=== PATIENT | female | born 1955 | race Two or more races ===

== ENCOUNTER 2018-04-23 14:51 | Emergency (ER) | payer MEDICAID ==
[~2018-04-23] VITALS: Ht 152.4 cm; Wt 52.3 kg
[2018-04-23 14:55] VITALS: BP 125/72
[2018-04-23 15:26] LABS: BASOPHILS # (AUTO) 0.05 x10^3/uL (0-0.1); BASOPHILS % (AUTO) 1 % (0-1); EOSINOPHILS # (AUTO) 0.13 x10^3/uL (0-0.4); EOSINOPHILS % (AUTO) 1 % (1-7); LYMPHOCYTES # (AUTO) 2.99 x10^3/uL (1-3.4); LYMPHOCYTES % (AUTO) 30 % (22-44); MD NO; MEAN CORPUSCULAR HEMOGLOBIN 26.7 pg (27.0-34.8); MEAN CORPUSCULAR HGB CONC 32.5 g/dL (32.4-35.8); MEAN CORPUSCULAR VOLUME 82.3 fL (80-100); MEAN PLATELET VOLUME 8.2 fL (7.4-10.4); MONOCYTES # (AUTO) 0.72 x10^3/uL (0.2-0.8); MONOCYTES % (AUTO) 7 % (2-9); NEUTROPHILS # (AUTO) 6.08 x10^3/uL (1.8-6.8); NEUTROPHILS % (AUTO) 61 % (42-75); PLATELET COUNT 346 x10^3/uL (130-400); RED BLOOD COUNT 5.92 x10^6/uL (3.82-5.3); RED CELL DISTRIBUTION WIDTH 14.2 % (9.6-15.2)
[2018-04-23] MEDS ORDERED: OXYcodone/APAP 5/325MG TABLET PO ONE (15:30)
[2018-04-23 15:37] LABS: ALANINE AMINOTRANSFERASE 14 U/L (12-78); ALBUMIN 3.4 g/dL (3.4-5.0); ANION GAP 7 mmol/L (5-15); CHLORIDE 102 mmol/L (98-107); CREATININE 0.64 mg/dL (0.55-1.02)
[2018-04-23 15:39] LABS: ALKALINE PHOSPHATASE 89 U/L (45-117); BILIRUBIN,TOTAL 0.4 mg/dL (0.2-1.0); TOTAL PROTEIN 8.5 g/dL (6.4-8.2)
[2018-04-23 16:06] LABS: MICROSCOPIC INDICATED
[2018-04-23 16:41] LABS: CULTURE INDICATED? NO
== END 2018-04-23 16:47 | disposition home or self-care (01) ==
LOC: ED 16:05
DX: R10.9 Unspecified abdominal pain (principal); N28.89 Other specified disorders of kidney and ureter
CPT/HCPCS: 36415; 80053; 81001; 85025; 99284

== ENCOUNTER 2018-07-16 09:03 | Day surgery (SDC) | payer MEDICAID ==
[2018-07-16] MEDS ORDERED: SODIUM CHLORIDE 0.9% 1,000 ML IV SCH (10:00)
[2018-07-16] MEDS ORDERED: LIDOCAINE-MPF 1%, 5ML ONE (10:43)
== END 2018-07-16 17:00 | disposition home or self-care (01) ==
LOC: OUT 09:03 → RAD 17:00
PROVIDERS: ATTEND Internal Medicine
DX: E04.1 Nontoxic single thyroid nodule (principal); Z85.528 Personal history of other malignant neoplasm of kidney
CPT/HCPCS: 10022; 76942; 88172; 88173

== ENCOUNTER 2018-07-22 15:56 | Emergency (ER) | payer MEDICAID ==
[~2018-07-22] VITALS: Ht 144.8 cm; Wt 54.4 kg
[2018-07-22 16:11] VITALS: BP 121/63
[2018-07-22] MEDS ORDERED: HYDROcodone/APAP 5/325 TABLET PO PRN (17:00)
[2018-07-22] MEDS ORDERED: HYDROcodone/APAP 5/325 TABLET ONE (17:04)
== END 2018-07-22 17:22 | disposition home or self-care (01) ==
LOC: ED 17:16
DX: M25.531 Pain in right wrist (principal); M79.631 Pain in right forearm; M79.621 Pain in right upper arm; R20.2 Paresthesia of skin
CPT/HCPCS: 99284

== ENCOUNTER → 2018-08-06 | Outpatient (CLI) | payer MEDICAID ==
[2018-07-16 09:36] VITALS: BP 117/78
[~2018-08-06] VITALS: Ht 149.9 cm; Wt 52.9 kg
[~2018-08-06] MED LIST: SODIUM CHLORIDE 0.9% 1,000 ML IV SCH
== END | disposition home or self-care (01) ==
LOC: PETCFH 08:18
PROVIDERS: ATTEND Student in an Organized Health Care Education/Training Program
DX: C64.1 Malignant neoplasm of right kidney, except renal pelvis (principal)
CPT/HCPCS: 78306; A9503

== ENCOUNTER → 2018-08-13 | Outpatient (CLI) | payer MEDICAID ==
[~2018-08-13] MED LIST changes: +OMNIPAQUE 350 MG/ML, 100ML BOTTLE ONE; -SODIUM CHLORIDE 0.9% 1,000 ML IV SCH
== END | disposition home or self-care (01) ==
LOC: CFH 14:44
PROVIDERS: ATTEND Student in an Organized Health Care Education/Training Program
DX: R59.9 Enlarged lymph nodes, unspecified (principal); E04.9 Nontoxic goiter, unspecified; E07.9 Disorder of thyroid, unspecified
CPT/HCPCS: 71260; 74177; 82565; Q9967

== ENCOUNTER 2018-09-28 11:04 | Emergency (ER) | payer MEDICAID ==
[~2018-09-28] VITALS: Ht 147.3 cm; Wt 59.2 kg
[2018-09-28 12:01] LABS: BASOPHILS # (AUTO) 0.04 x10^3/uL (0-0.1); BASOPHILS % (AUTO) 1 % (0-1); EOSINOPHILS # (AUTO) 0.14 x10^3/uL (0-0.4); EOSINOPHILS % (AUTO) 2 % (1-7); LYMPHOCYTES # (AUTO) 2.03 x10^3/uL (1-3.4); LYMPHOCYTES % (AUTO) 28 % (22-44); MD NO; MEAN CORPUSCULAR HEMOGLOBIN 28.5 pg (27.0-34.8); MEAN CORPUSCULAR HGB CONC 33.2 g/dL (32.4-35.8); MEAN CORPUSCULAR VOLUME 85.9 fL (80-100); MEAN PLATELET VOLUME 9.1 fL (7.4-10.4); MONOCYTES # (AUTO) 0.48 x10^3/uL (0.2-0.8); MONOCYTES % (AUTO) 7 % (2-9); NEUTROPHILS # (AUTO) 4.69 x10^3/uL (1.8-6.8); NEUTROPHILS % (AUTO) 64 % (42-75); PLATELET COUNT 251 x10^3/uL (130-400); RED BLOOD COUNT 6.38 x10^6/uL (3.82-5.3); RED CELL DISTRIBUTION WIDTH 15.3 % (9.6-15.2)
[2018-09-28 12:11] LABS: ALBUMIN 3.6 g/dL (3.4-5.0); ANION GAP 5 mmol/L (5-15); CALCIUM 9.9 mg/dL (8.5-10.1); CHLORIDE 103 mmol/L (98-107)
[2018-09-28 12:21] LABS: CREATININE 1.08 mg/dL (0.55-1.02); FREE T4 (FREE THYROXINE) 0.91 ng/dL (0.76-1.46)
--- NOTE | 2018-09-28 12:47 | NUR ---
TO ROOM FROM LOBBY. NAD.
[2018-09-28] MEDS ORDERED: YERVOY INJ (13:03)
[2018-09-28] MEDS ORDERED: OPDIVO INJ (13:03)
--- NOTE | 2018-09-28 13:06 | NUR ---
DR BUTTERFIELD AT BEDSIDE. PT ASSESSMENT REVIEWED.
--- NOTE | 2018-09-28 13:33 | NUR ---
Recieved bedside report from Cary ROOT. All questions answered. Assuming care of pt. NADReed. Pt connected to all monitors. Pt's daughter at bedside. All safety measures in place.
--- NOTE | 2018-09-28 14:11 | NUR ---
Patient and daughter given discharge instructions and they have confirmed that they understand the instructions. Patient ambulatory with steady gait and balance. Pt left with all personal belongings, discharge paperwork, and prescription.
[2018-09-28 14:12] VITALS: BP 117/75
== END 2018-09-28 14:17 | disposition home or self-care (01) ==
LOC: ED 13:35
DX: G56.93 Unspecified mononeuropathy of bilateral upper limbs (principal); Z85.528 Personal history of other malignant neoplasm of kidney
CPT/HCPCS: 36415; 80048; 82040; 84439; 84443; 85025; 99283

== ENCOUNTER → 2019-03-08 | Outpatient (CLI) | payer MEDICAID ==
[~2019-03-08] MED LIST changes: +OPDIVO INJ; +YERVOY INJ
== END | disposition home or self-care (01) ==
LOC: CFH 09:02
PROVIDERS: ATTEND Nurse Practitioner
DX: Z51.12 Encounter for antineoplastic immunotherapy (principal); C77.1 Secondary and unspecified malignant neoplasm of intrathoracic lymph nodes; C78.00 Secondary malignant neoplasm of unspecified lung; C64.1 Malignant neoplasm of right kidney, except renal pelvis; E04.1 Nontoxic single thyroid nodule; R91.8 Other nonspecific abnormal finding of lung field
CPT/HCPCS: 71260; 74177; Q9967

== ENCOUNTER 2021-04-07 02:43 | Inpatient (IN) | payer MEDICARE, MEDICAID ==
[~2021-04-07] VITALS: Ht 144.8 cm; Wt 60.6 kg
[~2021-04-07 02:43] MED LIST changes: -OMNIPAQUE 350 MG/ML, 100ML BOTTLE ONE
--- NOTE | 2021-04-07 03:03 | NUR ---
Pt Lithuanian speaking, son on way to hospital to help with translation. Addendum: 04/07/21 at 0546 by CALI Daughter at bedside
[2021-04-07 03:48] LABS: BASOPHILS % (AUTO) 1 % (0-1); EOSINOPHILS % (AUTO) 2 % (1-7); LYMPHOCYTES % (AUTO) 28 % (22-44); MEAN CORPUSCULAR HEMOGLOBIN 24.9 pg (27.0-34.8); MEAN CORPUSCULAR HGB CONC 32.5 g/dL (32.4-35.8); MEAN PLATELET VOLUME 7.4 fL (7.4-10.4); MONOCYTES % (AUTO) 9 % (2-9); NEUTROPHILS % (AUTO) 60 % (42-75); PLATELET COUNT 335 x10^3/uL (130-400); RED BLOOD COUNT 6.83 x10^6/uL (3.82-5.3); RED CELL DISTRIBUTION WIDTH 19.2 % (9.6-15.2)
[2021-04-07 03:54] LABS: ALANINE AMINOTRANSFERASE 17 U/L (12-78); ALBUMIN 2.5 g/dL (3.4-5.0); ANION GAP 7 mmol/L (5-15); CALCIUM 9.3 mg/dL (8.5-10.1); CHLORIDE 103 mmol/L (98-107); CREATININE 0.71 mg/dL (0.55-1.02)
[2021-04-07 03:57] LABS: ALKALINE PHOSPHATASE 78 U/L (45-117); BILIRUBIN,TOTAL 0.8 mg/dL (0.2-1.0); TOTAL PROTEIN 7.6 g/dL (6.4-8.2)
[2021-04-07] MEDS ORDERED: KETOROLAC 30 MG/1 ML IV PRN (05:00)
[2021-04-07] MEDS ORDERED: ONDANSETRON 2MG/ML, 2ML IVPush PRN (05:00)
[2021-04-07] MEDS ORDERED: LORazepam 2 MG/ML, 1ML IVPush PRN (05:00)
[2021-04-07] MEDS ORDERED: LABETALOL 5MG/ML, 20ML IVPush PRN (05:00)
--- NOTE | 2021-04-07 05:45 | NUR ---
Report to Amalia ROOT
[2021-04-07 06:19] VITALS: BP 101/63
[2021-04-07] MEDS: ACETAMINOPHEN 325 MG TABLET PO PRN ×2 (09:14→20:06)
[2021-04-07] MEDS: OXYcodone IR 5MG TABLET PO PRN (09:16)
[2021-04-07 12:18] VITALS: BP 108/72
[2021-04-07 12:19] VITALS: BP 99/66
[2021-04-07 12:20] VITALS: BP 97/62
[2021-04-07] MEDS ORDERED: GADOTERATE 5 MMOL/10ML SYR ONE (18:58)
[2021-04-07 19:26] VITALS: BP 102/59
[2021-04-07 19:27] VITALS: BP_SYST 104; BP_SYST 95; BP_DIAS 64; BP_DIAS 66
[2021-04-07] MEDS ORDERED: PRED10TA PO (21:39)
[2021-04-07] MEDS ORDERED: LEVO25CA4 PO (21:39)
[2021-04-08 03:19] VITALS: BP 92/61
[2021-04-08 05:09] LABS: BASOPHILS % (AUTO) 1 % (0-1); EOSINOPHILS % (AUTO) 4 % (1-7); LYMPHOCYTES % (AUTO) 26 % (22-44); MEAN CORPUSCULAR HEMOGLOBIN 24.8 pg (27.0-34.8); MEAN PLATELET VOLUME 7.6 fL (7.4-10.4); MONOCYTES % (AUTO) 9 % (2-9); NEUTROPHILS % (AUTO) 60 % (42-75); PLATELET COUNT 345 x10^3/uL (130-400); RED CELL DISTRIBUTION WIDTH 19.1 % (9.6-15.2)
[2021-04-08 05:16] LABS: ANION GAP 6 mmol/L (5-15); CALCIUM 9.3 mg/dL (8.5-10.1); CHLORIDE 104 mmol/L (98-107)
[2021-04-08 05:17] LABS: CREATININE 0.81 mg/dL (0.55-1.02)
[2021-04-08 06:31] VITALS: BP 90/53
[2021-04-08] MEDS: OXYcodone IR 5MG TABLET PO PRN (06:41)
[2021-04-08 09:08] VITALS: BP_SYST 87; BP_SYST 89; BP_SYST 98; BP_DIAS 53; BP_DIAS 56
[2021-04-08 12:51] VITALS: BP 96/63
[2021-04-08 19:32] VITALS: BP 99/62
[2021-04-08 21:00] VITALS: BP_SYST 88; BP_SYST 92; BP_SYST 99; BP_DIAS 58; BP_DIAS 60; BP_DIAS 64
[2021-04-09 01:20] VITALS: BP 97/63
[2021-04-09 04:44] LABS: CHLORIDE 102 mmol/L (98-107)
[2021-04-09 04:49] LABS: ANION GAP 6 mmol/L (5-15); CALCIUM 9.5 mg/dL (8.5-10.1); CREATININE 0.91 mg/dL (0.55-1.02)
[2021-04-09 06:41] VITALS: BP 99/65
[2021-04-09] MEDS: POLYETHYLENE GLYCOL 17 GM PACKET PO PRN (07:45)
[2021-04-09 10:20] VITALS: BP_SYST 102; BP_SYST 111; BP_SYST 98; BP_DIAS 51; BP_DIAS 60; BP_DIAS 68
[2021-04-09 11:27] LABS: INTERNATIONAL NORMALIZED RATIO 1.04 (0.93-1.1); PROTHROMBIN TIME 11.1 Seconds (9.6-11.5)
[2021-04-09 12:40] VITALS: BP 91/53
[2021-04-09 19:21] VITALS: BP 99/65
[2021-04-10 00:08] VITALS: BP 91/55
[2021-04-10 04:41] LABS: BASOPHILS % (AUTO) 1 % (0-1); EOSINOPHILS % (AUTO) 4 % (1-7); LYMPHOCYTES % (AUTO) 28 % (22-44); MEAN CORPUSCULAR HEMOGLOBIN 25.1 pg (27.0-34.8); MEAN CORPUSCULAR HGB CONC 32.4 g/dL (32.4-35.8); MEAN PLATELET VOLUME 7.5 fL (7.4-10.4); MONOCYTES % (AUTO) 10 % (2-9); NEUTROPHILS % (AUTO) 58 % (42-75); PLATELET COUNT 363 x10^3/uL (130-400); RED BLOOD COUNT 7.03 x10^6/uL (3.82-5.3); RED CELL DISTRIBUTION WIDTH 19.3 % (9.6-15.2)
[2021-04-10 04:50] LABS: ANION GAP 6 mmol/L (5-15); CALCIUM 9.6 mg/dL (8.5-10.1); CHLORIDE 103 mmol/L (98-107)
[2021-04-10 04:53] LABS: CREATININE 0.83 mg/dL (0.55-1.02)
[2021-04-10] MEDS ORDERED: D5%-0.45% NACL 1,000 ML IV SCH (05:00)
[2021-04-10 06:30] VITALS: BP 91/54
[2021-04-10] MEDS ORDERED: GADOTERATE 7.5 MMOL/15ML SYR ONE (11:40)
[2021-04-10 14:32] VITALS: BP 106/68
[2021-04-10] MEDS ORDERED: CHLORHEXIDINE 15 ML UDC ONE (15:53)
[2021-04-10] MEDS ORDERED: CHLORHEXIDINE 15 ML UDC PO ONE (16:00)
[2021-04-10] MEDS ORDERED: FENTANYL PF 100 MCG/2ML ONE (16:14)
[2021-04-10] MEDS ORDERED: MIDAZOLAM 1 MG/ML, 2ML ONE (16:14)
[2021-04-10] MEDS ORDERED: GENTAMICIN 80 MG/2 ML ONE (17:18)
[2021-04-10] MEDS ORDERED: BUPIVACAINE/PF 0.5% ONE (17:18)
[2021-04-10] MEDS ORDERED: CEFUROXIME 1.5 GM ONE (17:18)
[2021-04-10] MEDS ORDERED: VANCOMYCIN 1,000 MG ONE (17:19)
[2021-04-10] MEDS ORDERED: FUROSEMIDE 20 MG/2 ML ONE (17:19)
[2021-04-10] MEDS ORDERED: MANNITOL PMX 20% 0 ML ONE (17:19)
[2021-04-10] MEDS ORDERED: EPINEPHRINE 1 MG/ML, 1ML ONE (17:19)
[2021-04-10] MEDS ORDERED: PROPOFOL 10 MG/ML, 20ML ONE (17:35)
[2021-04-10] MEDS ORDERED: ONDANSETRON 2MG/ML, 2ML ONE (17:35)
[2021-04-10] MEDS ORDERED: ROCURONIUM 10 MG/ML,10ML ONE (17:35)
[2021-04-10] MEDS ORDERED: SUGAMMADEX 200 MG/2 ML IVPush ONE (17:35)
[2021-04-10] MEDS ORDERED: DEXAMETHASONE 4 MG/ML, 1ML ONE (17:35)
[2021-04-10] MEDS ORDERED: THROMBIN 20,000 UNIT VIAL TP ONE (18:43)
[2021-04-10] MEDS ORDERED: hydrALAzine 20 MG/ML, 1ML IV PRN (20:00)
[2021-04-10] MEDS ORDERED: LORazepam 2 MG/ML, 1ML IVPush PRN (20:00)
[2021-04-10] MEDS ORDERED: HYDROmorphone 1 MG/ML, 1ML INJ IVPush PRN (20:00)
[2021-04-10] MEDS ORDERED: FENTANYL PF 100 MCG/2ML IV PRN (20:00)
[2021-04-10] MEDS ORDERED: ALBUTEROL/IPRATROPIUM 2.5MG/0.5MG, 3 ML NPPB PRN (20:00)
[2021-04-10] MEDS ORDERED: PROMETHAZINE 25 MG/ML, 1ML IVPush PRN (20:00)
[2021-04-10] MEDS ORDERED: ONDANSETRON 2MG/ML, 2ML IVPush PRN (20:00)
[2021-04-10] MEDS ORDERED: OXYcodone 5 MG/5 ML ORAL.SOL UDC PO PRN (20:00)
[2021-04-10] MEDS ORDERED: METHOCARBAMOL 1,000 MG in DEXTROSE 5% 100 ML IV PRN (20:00)
[2021-04-10] MEDS ORDERED: PROMETHAZINE 25 MG SUPP PR PRN (20:00)
[2021-04-10] MEDS ORDERED: LABETALOL 5MG/ML, 20ML IV PRN ×2 (20:00→21:30)
[2021-04-10] MEDS ORDERED: ACETAMINOPHEN 325 MG TABLET PO PRN (20:00)
[2021-04-10] MEDS ORDERED: DIPHENHYDRAMINE 50 MG/ML, 1ML IM PRN (21:30)
[2021-04-10] MEDS ORDERED: DIPHENHYDRAMINE 25 MG CAPSULE PO PRN (21:30)
[2021-04-10] MEDS ORDERED: DIPHENHYDRAMINE 50 MG/ML, 1ML IVPush PRN (21:30)
[2021-04-10] MEDS ORDERED: BISACODYL 10 MG SUPP PR PRN (21:30)
[2021-04-10] MEDS ORDERED: HYDROcodone/APAP 5/325 TABLET PO PRN (21:30)
[2021-04-10] MEDS ORDERED: ONDANSETRON 2MG/ML, 2ML IV PRN (21:30)
[2021-04-10] MEDS ORDERED: PROMETHAZINE 25 MG/ML, 1ML IM PRN (21:30)
[2021-04-10] MEDS ORDERED: HYDROmorphone 2 MG/ML, 1ML IM PRN (21:30)
[2021-04-10] MEDS: DEXAMETHASONE 4 MG/ML, 1ML IV SCH (21:57)
[2021-04-10] MEDS: NS + 20MEQ KCL 1,000 ML IV SCH (21:57)
[2021-04-10] MEDS: LABETALOL 5MG/ML, 20ML IV SCH (21:57)
[2021-04-10] MEDS: CEFAZOLIN PMX 1GM/50ML 50 ML IVPB SCH (22:52)
[2021-04-11] MEDS: DEXAMETHASONE 4 MG/ML, 1ML IV SCH ×4 (03:34→22:06)
[2021-04-11 03:50] LABS: MEAN CORPUSCULAR HEMOGLOBIN 24.9 pg (27.0-34.8); MEAN PLATELET VOLUME 7.6 fL (7.4-10.4); PLATELET COUNT 314 x10^3/uL (130-400); RED BLOOD COUNT 6.37 x10^6/uL (3.82-5.3); RED CELL DISTRIBUTION WIDTH 19.2 % (9.6-15.2)
[2021-04-11 03:54] LABS: ALBUMIN 2.4 g/dL (3.4-5.0); ANION GAP 7 mmol/L (5-15); CALCIUM 8.3 mg/dL (8.5-10.1); CHLORIDE 106 mmol/L (98-107); CREATININE 0.77 mg/dL (0.55-1.02)
[2021-04-11 04:25] LABS: BAND#(MANUAL) 0.35 x10^3/uL; BANDS%(MANUAL) 3 % (0-7); LYMPH#(MANUAL) 0.47 x10^3/uL (1-3.4); LYMPHS% (MANUAL) 4 % (22-44); MONOS#(MANUAL) 0.24 x10^3/uL (0.3-2.7); MONOS% (MANUAL) 2 % (2-9); SEG#(MANUAL) 10.74 x10^3/uL (1.8-6.8); SEGS% (MANUAL) 91 % (42-75)
[2021-04-11 04:26] LABS: <PLATELET ESTIMATE> ADEQUATE; <PLT MORPHOLOGY> NORMAL PLT MORPH; <RBC MORPHOLOGY> NORMAL
[2021-04-11] MEDS: LABETALOL 5MG/ML, 20ML IV SCH ×3 (05:30→20:17)
[2021-04-11] MEDS: PROPARACAINE OPHTH 0.5%, 15ML LEFTEYE PRN ×3 (06:18→14:11)
[2021-04-11] MEDS: CEFAZOLIN PMX 1GM/50ML 50 ML IVPB SCH (06:18)
[2021-04-11] MEDS: SENNA/DOCUSATE TABLET PO SCH (08:46)
[2021-04-11] MEDS: LIDODERM 5% PATCH TD SCH (09:57)
[2021-04-11] MEDS: OXYcodone IR 5MG TABLET PO PRN ×3 (09:59→20:05)
[2021-04-11] MEDS: NS + 20MEQ KCL 1,000 ML IV SCH (14:11)
[2021-04-11] MEDS: ERYTHROMYCIN OPHTH 0.5%, 1GM LEFTEYE SCH ×2 (18:05→22:30)
[2021-04-11 19:54] VITALS: BP 108/68
[2021-04-11 22:15] VITALS: BP 95/58
[2021-04-11 22:18] VITALS: BP 101/64
[2021-04-11 22:25] VITALS: BP 104/68
[2021-04-12] VITALS (10 sets, daily range): BP systolic 90–104; BP diastolic 51–57
[2021-04-12] MEDS: OXYcodone IR 5MG TABLET PO PRN ×4 (00:21→14:01)
[2021-04-12] MEDS: ERYTHROMYCIN OPHTH 0.5%, 1GM LEFTEYE SCH ×6 (02:17→21:46)
[2021-04-12] MEDS: DEXAMETHASONE 4 MG/ML, 1ML IV SCH ×4 (04:19→21:45)
[2021-04-12 04:55] LABS: BASOPHILS % (AUTO) 0 % (0-1); EOSINOPHILS % (AUTO) 0 % (1-7); LYMPHOCYTES % (AUTO) 5 % (22-44); MEAN CORPUSCULAR HGB CONC 32.4 g/dL (32.4-35.8); MEAN PLATELET VOLUME 7.4 fL (7.4-10.4); MONOCYTES % (AUTO) 3 % (2-9); NEUTROPHILS % (AUTO) 91 % (42-75); PLATELET COUNT 332 x10^3/uL (130-400); RED BLOOD COUNT 6.11 x10^6/uL (3.82-5.3); RED CELL DISTRIBUTION WIDTH 18.8 % (9.6-15.2)
[2021-04-12 05:06] LABS: CHLORIDE 105 mmol/L (98-107)
[2021-04-12 05:19] LABS: ANION GAP 4 mmol/L (5-15); CREATININE 0.78 mg/dL (0.55-1.02)
[2021-04-12] MEDS: LABETALOL 5MG/ML, 20ML IV SCH ×3 (06:07→21:30)
[2021-04-12] MEDS: LIDODERM 5% PATCH TD SCH (08:50)
[2021-04-12] MEDS: SENNA/DOCUSATE TABLET PO SCH (08:51)
[2021-04-12] MEDS: MAGNESIUM HYDROXIDE 8%, 30ML UDC PO PRN (08:51)
[2021-04-12] MEDS: POLYETHYLENE GLYCOL 17 GM PACKET PO PRN (14:01)
[2021-04-12] MEDS ORDERED: OMNIPAQUE 350 MG/ML, 100ML BOTTLE ONE (14:57)
[2021-04-12] MEDS: OxyconTIN ER 10 MG TAB.ER PO SCH (21:45)
[2021-04-13] VITALS (9 sets, daily range): BP systolic 91–133; BP diastolic 49–73
[2021-04-13] MEDS: ERYTHROMYCIN OPHTH 0.5%, 1GM LEFTEYE SCH ×6 (02:11→23:34)
[2021-04-13] MEDS: DEXAMETHASONE 4 MG/ML, 1ML IV SCH ×4 (04:26→21:49)
[2021-04-13] MEDS: LABETALOL 5MG/ML, 20ML IV SCH (04:27)
[2021-04-13 04:55] LABS: BASOPHILS % (AUTO) 0 % (0-1); EOSINOPHILS % (AUTO) 0 % (1-7); LYMPHOCYTES % (AUTO) 7 % (22-44); MEAN CORPUSCULAR HEMOGLOBIN 25.2 pg (27.0-34.8); MEAN CORPUSCULAR HGB CONC 32.4 g/dL (32.4-35.8); MONOCYTES % (AUTO) 5 % (2-9); NEUTROPHILS % (AUTO) 89 % (42-75); PLATELET COUNT 321 x10^3/uL (130-400); RED BLOOD COUNT 5.91 x10^6/uL (3.82-5.3); RED CELL DISTRIBUTION WIDTH 19.1 % (9.6-15.2)
[2021-04-13 04:59] LABS: ALBUMIN 2.5 g/dL (3.4-5.0); ANION GAP 3 mmol/L (5-15); CALCIUM 9.1 mg/dL (8.5-10.1); CHLORIDE 102 mmol/L (98-107)
[2021-04-13 05:04] LABS: % IRON SATURATION 10 % (20-55); ALANINE AMINOTRANSFERASE 14 U/L (12-78); ALKALINE PHOSPHATASE 66 U/L (45-117); BILIRUBIN,TOTAL 0.4 mg/dL (0.2-1.0); CREATININE 0.71 mg/dL (0.55-1.02); IRON LEVEL 32 mcg/dL (50-170); TOTAL IRON BINDING CAPACITY 322 mcg/dL (250-450); TOTAL PROTEIN 7.3 g/dL (6.4-8.2)
[2021-04-13] MEDS: OxyconTIN ER 10 MG TAB.ER PO SCH ×2 (09:16→20:02)
[2021-04-13] MEDS: POLYETHYLENE GLYCOL 17 GM PACKET PO PRN (09:17)
[2021-04-13] MEDS: SENNA/DOCUSATE TABLET PO SCH (09:17)
[2021-04-13] MEDS: LIDODERM 5% PATCH TD SCH (09:17)
[2021-04-13] MEDS: MAGNESIUM HYDROXIDE 8%, 30ML UDC PO PRN (09:17)
[2021-04-13] MEDS: OXYcodone IR 5MG TABLET PO PRN ×2 (09:39→21:51)
[2021-04-13 12:50] LABS: ANION GAP 8 mmol/L (5-15); CALCIUM 9.4 mg/dL (8.5-10.1); CHLORIDE 103 mmol/L (98-107); CREATININE 0.76 mg/dL (0.55-1.02)
[2021-04-13] MEDS: SODIUM CHLORIDE 1 GM TABLET PO SCH ×2 (15:24→20:02)
[2021-04-14 01:13] VITALS: BP 108/57
[2021-04-14] MEDS ORDERED: TRAZODONE 50MG TABLET PO ONE (01:30)
[2021-04-14] MEDS: DEXAMETHASONE 4 MG/ML, 1ML IV SCH ×2 (03:31→10:16)
[2021-04-14] MEDS: ERYTHROMYCIN OPHTH 0.5%, 1GM LEFTEYE SCH ×3 (03:31→11:49)
[2021-04-14 06:20] LABS: BASOPHILS % (AUTO) 0 % (0-1); EOSINOPHILS % (AUTO) 0 % (1-7); LYMPHOCYTES % (AUTO) 6 % (22-44); MEAN CORPUSCULAR HEMOGLOBIN 24.3 pg (27.0-34.8); MEAN CORPUSCULAR HGB CONC 31.5 g/dL (32.4-35.8); MEAN PLATELET VOLUME 7.6 fL (7.4-10.4); MONOCYTES % (AUTO) 6 % (2-9); NEUTROPHILS % (AUTO) 88 % (42-75); PLATELET COUNT 297 x10^3/uL (130-400); RED BLOOD COUNT 6.24 x10^6/uL (3.82-5.3); RED CELL DISTRIBUTION WIDTH 18.8 % (9.6-15.2)
[2021-04-14] MEDS: LIDODERM 5% PATCH TD SCH (08:52)
[2021-04-14] MEDS: SODIUM CHLORIDE 1 GM TABLET PO SCH (08:52)
[2021-04-14] MEDS: OxyconTIN ER 10 MG TAB.ER PO SCH (08:52)
[2021-04-14] MEDS: SENNA/DOCUSATE TABLET PO SCH (08:52)
[2021-04-14 09:02] VITALS: BP 96/56
[2021-04-14 09:03] VITALS: BP 98/55
[2021-04-14] MEDS ORDERED: ERYT1OIN5 LEFTEYE (09:04)
[2021-04-14] MEDS ORDERED: ONDA4TAB7 PO (09:04)
[2021-04-14] MEDS ORDERED: LORA-446 PO (09:04)
[2021-04-14] MEDS ORDERED: DEXA4TAB66 PO ×3 (09:04)
[2021-04-14] MEDS ORDERED: OXYC5TAB98 PO (09:04)
[2021-04-14 09:05] VITALS: BP 97/57
[2021-04-14] MEDS ORDERED: LIDO700A20 TD (09:10)
[2021-04-14] MEDS: OXYcodone IR 5MG TABLET PO PRN (12:42)
== END 2021-04-14 12:56 | disposition home health service (06) | DRG 25 ==
LOC: ED 04:50 → EDIP 04:51 → 4NW 06:14 → CCU 04-10 20:52 → 4NW 04-11 19:40
PROVIDERS: ADMIT Internal Medicine; ATTEND Family Medicine
PROC: 00B00ZZ Excision of Brain, Open Approach (ICD-10-PCS; principal; 2021-04-10 19:00)
DX: C79.31 Secondary malignant neoplasm of brain (principal); E43 Unspecified severe protein-calorie malnutrition; G93.6 Cerebral edema; C64.9 Malignant neoplasm of unspecified kidney, except renal pelvis; C78.00 Secondary malignant neoplasm of unspecified lung; E87.1 Hypo-osmolality and hyponatremia; C79.70 Secondary malignant neoplasm of unspecified adrenal gland; E86.0 Dehydration; E61.1 Iron deficiency; F41.9 Anxiety disorder, unspecified; G47.00 Insomnia, unspecified; K59.00 Constipation, unspecified; D75.1 Secondary polycythemia; R29.6 Repeated falls; D63.8 Anemia in other chronic diseases classified elsewhere; D72.829 Elevated white blood cell count, unspecified; Z51.5 Encounter for palliative care; E04.1 Nontoxic single thyroid nodule; E88.09 Other disorders of plasma-protein metabolism, not elsewhere classified; S05.02XA Injury of conjunctiva and corneal abrasion without foreign body, left eye, initial encounter; W07.XXXA Fall from chair, initial encounter; Z20.822 Contact with and (suspected) exposure to COVID-19; R49.0 Dysphonia; Z85.048 Personal history of other malignant neoplasm of rectum, rectosigmoid junction, and anus; Z85.528 Personal history of other malignant neoplasm of kidney; Z90.5 Acquired absence of kidney; Z68.28 Body mass index [BMI] 28.0-28.9, adult; Y93.89 Activity, other specified; Y99.8 Other external cause status; Y92.009 Unspecified place in unspecified non-institutional (private) residence as the place of occurrence of the external cause
CPT/HCPCS: 36415; 70450; 70553; 71260; 72220; 74177; 78306; 80048; 80053; 82040; 82728; 83540; 83550; 83735; 85025; 85347; 85384; 85576; 85610; 85730; 87081; 87635; 88307; 88341; 88342; 93005; 93306; 93356; 93970; 96374; 99285; C1713; G0378; J0171; J0690; J0697; J1100; J1170; J1885; J2250; J2405; J2704; J3010; J3370; J3480; Q9967; A4648; A9503; A9575; C1781; C9898; J1580; J1940; J2060; Q0163

== ENCOUNTER 2021-04-25 07:13 | Outpatient (CLI) | payer MEDICARE, MEDICAID ==
[~2021-04-25 07:13] MED LIST changes: +DEXA4TAB66 PO; +ERYT1OIN5 LEFTEYE; +LEVO25CA4 PO; +LIDO700A20 TD; +LORA-446 PO; +ONDA4TAB7 PO; +OXYC5TAB98 PO; +PRED10TA PO
[2021-05-08] MEDS ORDERED: PRED10TA PO (10:10)
== END 2021-04-25 23:59 | disposition home or self-care (01) ==
LOC: ROC 07:13
PROVIDERS: ATTEND Radiology Radiation Oncology
DX: C79.31 Secondary malignant neoplasm of brain (principal); D63.8 Anemia in other chronic diseases classified elsewhere; F41.9 Anxiety disorder, unspecified; E86.0 Dehydration; E87.1 Hypo-osmolality and hyponatremia
CPT/HCPCS: G0463

== ENCOUNTER 2021-05-03 07:45 | Inpatient (IN) | payer MEDICARE, MEDICAID ==
[~2021-05-03] VITALS: Ht 144.8 cm; Wt 57.4 kg
--- NOTE | 2021-05-03 07:54 | NUR ---
NA X1
[2021-05-03] MEDS ORDERED: ONDANSETRON 2MG/ML, 2ML IVPush ONE (08:30)
[2021-05-03] MEDS ORDERED: SODIUM CHLORIDE FLUSH 10ML SYR IVF ONE (08:30)
[2021-05-03] MEDS ORDERED: SODIUM CHLORIDE 0.9% 1,000ML IVBOLUS ONE ×3 (08:30→14:00)
[2021-05-03] MEDS ORDERED: ONDANSETRON 2MG/ML, 2ML ONE (08:37)
[2021-05-03 09:11] LABS: BASOPHILS % (AUTO) 1 % (0-1); EOSINOPHILS % (AUTO) 0 % (1-7); LYMPHOCYTES % (AUTO) 14 % (22-44); MEAN CORPUSCULAR HEMOGLOBIN 24.8 pg (27.0-34.8); MEAN CORPUSCULAR HGB CONC 32.9 g/dL (32.4-35.8); MEAN PLATELET VOLUME 7.2 fL (7.4-10.4); MONOCYTES % (AUTO) 15 % (2-9); NEUTROPHILS % (AUTO) 71 % (42-75); PLATELET COUNT 232 x10^3/uL (130-400); RED BLOOD COUNT 7.05 x10^6/uL (3.82-5.3); RED CELL DISTRIBUTION WIDTH 19.9 % (9.6-15.2)
--- NOTE | 2021-05-03 09:12 | NUR ---
PT BACK FROM CT. VSS ASSESSED AND RA SPO2 89%. PT PLACED ON O2 VIA NC.
[2021-05-03 09:24] LABS: ALANINE AMINOTRANSFERASE 18 U/L (12-78); ALBUMIN 2.6 g/dL (3.4-5.0); ANION GAP 10 mmol/L (5-15); CALCIUM 8.9 mg/dL (8.5-10.1); CHLORIDE 96 mmol/L (98-107)
[2021-05-03 09:28] LABS: ALKALINE PHOSPHATASE 94 U/L (45-117); BILIRUBIN,TOTAL 0.5 mg/dL (0.2-1.0); TOTAL PROTEIN 7.7 g/dL (6.4-8.2); TROPONIN I < 0.015 ng/mL (0.000-0.045)
[2021-05-03 11:09] LABS: MICROSCOPIC AUTO
[2021-05-03] MEDS ORDERED: OMNIPAQUE 350 MG/ML, 75ML BOTTLE ONE (11:10)
[2021-05-03] MEDS ORDERED: ACETAMINOPHEN 500 MG TABLET PO ONE (11:30)
[2021-05-03] MEDS ORDERED: ACETAMINOPHEN 500 MG TABLET ONE (11:31)
--- NOTE | 2021-05-03 11:34 | NUR ---
DR PAINTING VERBAL ORDER FOR 1 G TYLENOL PO.
--- NOTE | 2021-05-03 14:00 | NUR ---
RECEIVED REPORT FROM TEREZA ROOT. PT LAYING ON GURNEY AWAKE & COMFORTABLE, PALAUAN SPEAKING BUT RESPONDS APPROP TO STAFF, NAD, COMFORT MEASURES PROVIDED, MUSIC MIXER AT BS, CALL LIGHT WITHIN REACH.
--- NOTE | 2021-05-03 15:04 | NUR ---
TASK RN: PT SITTING UP ON GURNEY W/ CALL LIGHT IN REACH AND SIDE RAILS UPX2. FAMILY AT BEDSIDE. RESP EVEN AND UNLABORED, JESSICA.
[2021-05-03] MEDS ORDERED: POLYETHYLENE GLYCOL 17 GM PACKET PO PRN (15:30)
[2021-05-03] MEDS ORDERED: ACETAMINOPHEN 325 MG TABLET PO PRN (15:30)
[2021-05-03] MEDS ORDERED: LORazepam 2 MG/ML, 1ML IVPush PRN (15:30)
[2021-05-03] MEDS ORDERED: ONDANSETRON ODT 4 MG PO PRN (15:30)
[2021-05-03] MEDS ORDERED: ENOXAPARIN 40 MG/0.4 ML SQ SCH (15:30)
[2021-05-03] MEDS ORDERED: ONDANSETRON 2MG/ML, 2ML IVPush PRN (15:30)
[2021-05-03] MEDS ORDERED: HYDROcodone/APAP 5/325 TABLET PO PRN (15:30)
[2021-05-03] MEDS ORDERED: VANCOMYCIN PER PHARMACY MC PRN (15:30)
--- NOTE | 2021-05-03 16:02 | NUR ---
PT CONTINUES LAYING ON GURNEY MOSTLY DOZING OFF, VIETNAMESE SPEAKING BUT AWAKENS & RESPONDS APPROP TO STAFF, NAD, NO NEEDS AT THIS TIME, MECHANICAL SPREADER OPERATOR AT BS, CALL LIGHT WITHIN REACH.
[2021-05-03 16:52] LABS: FREE T4 (FREE THYROXINE) 1.34 ng/dL (0.76-1.46)
[2021-05-03] MEDS ORDERED: DEXAMETHASONE 4 MG/ML, 1ML ONE (17:01)
--- NOTE | 2021-05-03 17:01 | NUR ---
PT LAYING ON GURNEY ABLE TO DOZE OFF EASILY, UKRAINIAN SPEAKING BUT AWAKENS & RESPONDS APPROP TO STAFF, NAD, COMFORT MEASURES PROVIDED, PATIENT CARE REPRESENTATIVE AT BS, CALL LIGHT WITHIN REACH.
[2021-05-03] MEDS: LACTATED RINGERS 1,000 ML IV SCH ×2 (17:08→23:54)
[2021-05-03] MEDS: DEXAMETHASONE 4 MG/ML, 1ML IVPush SCH ×2 (17:12→23:06)
--- NOTE | 2021-05-03 18:03 | NUR ---
PT CONTINUES LAYING ON GURNEY RESTING COMFORTABLY, WELSH SPEAKING- AWAKENS & RESPONDS APPROP TO STAFF, NAD, COMFORT MEASURES PROVIDED, NATURAL GAS ENGINEER AT BS, CALL LIGHT WITHIN REACH.
--- NOTE | 2021-05-03 18:06 | NUR ---
Pt to be admitted to ONC, room 407. Report called to [facility]. PT TO TRANSFER WHEN ROOM CLEANED- TP & DIAMOND SELECTOR AWARE.
[2021-05-03] MEDS ORDERED: PHARMACOKINETIC CONSULTATION MC ONE (18:30)
[2021-05-03] MEDS ORDERED: VANCOMYCIN 1,400 MG in SODIUM CHLORIDE 0.9% 250 ML IV ONE ×2 (18:30→23:00)
[2021-05-03] MEDS ORDERED: PHARMACOKINETIC MONITORING MC PRN (18:30)
--- NOTE | 2021-05-03 19:01 | NUR ---
RECIVED REPORT FROM ANNELIESE. SPOKE WITH THE DAUGHTER AND THE PATIENT ABOUT THE VISITOR POLICY AND BOTH WERE AGREEABLE WITH THE POLICY. PATIENT RESTING ON DOUG PAGE AT THIS TIME, NO QUESTIONS FROM PATIENT OR DAUGHTER. WILL CONTINUE TO MONITOR.
--- NOTE | 2021-05-03 19:02 | NUR ---
REPORT GIVEN TO OZZIE/SHAHAB ROOT
--- NOTE | 2021-05-03 19:13 | NUR ---
SPOKE TO VIVIENNE ON [employer] AND 407 IS CLEAN AND READY FOR THE PATIENT.
[2021-05-03 19:59] VITALS: BP 89/52
[2021-05-03] MEDS ORDERED: LORA-445 PO (19:59)
[2021-05-03] MEDS: MEROPENEM 1 GM in SODIUM CHLORIDE 0.9% 100 ML IV SCH (22:18)
[2021-05-04 00:03] VITALS: BP 106/64
[2021-05-04] MEDS: LEVOTHYROXINE 25 MCG TABLET PO SCH (05:41)
[2021-05-04] MEDS: DEXAMETHASONE 4 MG/ML, 1ML IVPush SCH ×4 (05:41→21:45)
[2021-05-04] MEDS: MEROPENEM 1 GM in SODIUM CHLORIDE 0.9% 100 ML IV SCH ×3 (05:41→21:46)
[2021-05-04 07:54] VITALS: BP 107/66
[2021-05-04] MEDS: SENNA/DOCUSATE TABLET PO SCH (09:00)
[2021-05-04 09:06] LABS: BASOPHILS % (AUTO) 0 % (0-1); EOSINOPHILS % (AUTO) 0 % (1-7); LYMPHOCYTES % (AUTO) 12 % (22-44); MEAN CORPUSCULAR HEMOGLOBIN 25.1 pg (27.0-34.8); MEAN CORPUSCULAR HGB CONC 32.5 g/dL (32.4-35.8); MEAN PLATELET VOLUME 7.4 fL (7.4-10.4); MONOCYTES % (AUTO) 5 % (2-9); NEUTROPHILS % (AUTO) 83 % (42-75); PLATELET COUNT 243 x10^3/uL (130-400); RED BLOOD COUNT 6.41 x10^6/uL (3.82-5.3); RED CELL DISTRIBUTION WIDTH 19.9 % (9.6-15.2)
[2021-05-04 09:17] LABS: ALBUMIN 2.1 g/dL (3.4-5.0); ANION GAP 5 mmol/L (5-15); CALCIUM 8.5 mg/dL (8.5-10.1); CHLORIDE 100 mmol/L (98-107)
[2021-05-04 09:22] LABS: ALANINE AMINOTRANSFERASE 20 U/L (12-78); ALKALINE PHOSPHATASE 81 U/L (45-117); BILIRUBIN,TOTAL 0.4 mg/dL (0.2-1.0); CREATININE 0.63 mg/dL (0.55-1.02); TOTAL PROTEIN 6.8 g/dL (6.4-8.2)
[2021-05-04] MEDS: VANCOMYCIN 1,000 MG in SODIUM CHLORIDE 0.9% 100 ML IV SCH (11:31)
[2021-05-04] MEDS ORDERED: REMDESIVIR 200 MG in SODIUM CHLORIDE 0.9% 100 ML IVPB ONE (14:00)
[2021-05-04] MEDS: ZINC SULFATE 220 MG CAPSULE PO SCH (14:03)
[2021-05-04] MEDS: CHOLECALCIFEROL 5,000u TAB PO SCH (14:03)
[2021-05-04 14:09] VITALS: BP 118/74
[2021-05-04 21:39] VITALS: BP 107/67
[2021-05-04] MEDS: THIAMINE 100MG TABLET PO SCH (21:45)
[2021-05-04] MEDS: ASCORBIC ACID 500 MG TABLET PO SCH (21:45)
[2021-05-04] MEDS: MELATONIN 5 MG TABLET PO SCH (21:46)
[2021-05-05 02:04] VITALS: BP 116/72
[2021-05-05] MEDS: VANCOMYCIN 1,000 MG in SODIUM CHLORIDE 0.9% 100 ML IV SCH (04:34)
[2021-05-05] MEDS: MEROPENEM 1 GM in SODIUM CHLORIDE 0.9% 100 ML IV SCH (06:30)
[2021-05-05] MEDS: LEVOTHYROXINE 25 MCG TABLET PO SCH (06:31)
[2021-05-05 06:43] LABS: BASOPHILS % (AUTO) 0 % (0-1); EOSINOPHILS % (AUTO) 0 % (1-7); LYMPHOCYTES % (AUTO) 9 % (22-44); MEAN CORPUSCULAR HGB CONC 32.7 g/dL (32.4-35.8); MEAN PLATELET VOLUME 7.7 fL (7.4-10.4); MONOCYTES % (AUTO) 6 % (2-9); NEUTROPHILS % (AUTO) 85 % (42-75); PLATELET COUNT 279 x10^3/uL (130-400); RED BLOOD COUNT 6.53 x10^6/uL (3.82-5.3); RED CELL DISTRIBUTION WIDTH 19.8 % (9.6-15.2)
[2021-05-05 06:53] LABS: ALANINE AMINOTRANSFERASE 19 U/L (12-78); ALBUMIN 2.4 g/dL (3.4-5.0); ANION GAP 8 mmol/L (5-15); CALCIUM 8.5 mg/dL (8.5-10.1); CHLORIDE 105 mmol/L (98-107); CREATININE 0.53 mg/dL (0.55-1.02)
[2021-05-05 07:00] LABS: ALKALINE PHOSPHATASE 79 U/L (45-117); BILIRUBIN,TOTAL 0.4 mg/dL (0.2-1.0); TOTAL PROTEIN 7.1 g/dL (6.4-8.2)
[2021-05-05 07:29] VITALS: BP 119/74
[2021-05-05] MEDS: SENNA/DOCUSATE TABLET PO SCH (09:00)
[2021-05-05] MEDS: ZINC SULFATE 220 MG CAPSULE PO SCH (09:36)
[2021-05-05] MEDS: DEXAMETHASONE 4 MG/ML, 1ML IVPush SCH (09:36)
[2021-05-05] MEDS: ASCORBIC ACID 500 MG TABLET PO SCH ×2 (09:37→21:17)
[2021-05-05] MEDS: CHOLECALCIFEROL 5,000u TAB PO SCH (09:37)
[2021-05-05] MEDS: THIAMINE 100MG TABLET PO SCH ×2 (09:37→21:17)
[2021-05-05 15:07] VITALS: BP 107/64
[2021-05-05] MEDS: REMDESIVIR 100 MG in SODIUM CHLORIDE 0.9% 100 ML IVPB SCH (16:50)
[2021-05-05] MEDS: MELATONIN 5 MG TABLET PO SCH (21:00)
[2021-05-05 21:33] VITALS: BP 105/69
[2021-05-06 02:45] VITALS: BP 114/71
[2021-05-06 04:22] LABS: ALBUMIN 2.5 g/dL (3.4-5.0); ANION GAP 8 mmol/L (5-15); CALCIUM 9.2 mg/dL (8.5-10.1); CHLORIDE 99 mmol/L (98-107)
[2021-05-06 04:24] LABS: BASOPHILS % (AUTO) 0 % (0-1); EOSINOPHILS % (AUTO) 0 % (1-7); LYMPHOCYTES % (AUTO) 16 % (22-44); MEAN CORPUSCULAR HEMOGLOBIN 25.2 pg (27.0-34.8); MEAN CORPUSCULAR HGB CONC 33.1 g/dL (32.4-35.8); MEAN PLATELET VOLUME 7.4 fL (7.4-10.4); MONOCYTES % (AUTO) 10 % (2-9); NEUTROPHILS % (AUTO) 75 % (42-75); PLATELET COUNT 287 x10^3/uL (130-400); RED BLOOD COUNT 6.77 x10^6/uL (3.82-5.3); RED CELL DISTRIBUTION WIDTH 19.8 % (9.6-15.2)
[2021-05-06 04:32] LABS: ALANINE AMINOTRANSFERASE 21 U/L (12-78); ALKALINE PHOSPHATASE 81 U/L (45-117); BILIRUBIN,TOTAL 0.4 mg/dL (0.2-1.0); CREATININE 0.64 mg/dL (0.55-1.02); TOTAL PROTEIN 7.2 g/dL (6.4-8.2)
[2021-05-06] MEDS: LEVOTHYROXINE 25 MCG TABLET PO SCH (05:18)
[2021-05-06] MEDS: ZINC SULFATE 220 MG CAPSULE PO SCH (09:39)
[2021-05-06] MEDS: SENNA/DOCUSATE TABLET PO SCH (09:39)
[2021-05-06] MEDS: THIAMINE 100MG TABLET PO SCH ×2 (09:39→22:19)
[2021-05-06] MEDS: CHOLECALCIFEROL 5,000u TAB PO SCH (09:39)
[2021-05-06] MEDS: ASCORBIC ACID 500 MG TABLET PO SCH ×2 (09:39→22:19)
[2021-05-06] MEDS: DEXAMETHASONE 4 MG/ML, 1ML IVPush SCH (09:39)
[2021-05-06 09:45] VITALS: BP 104/67
[2021-05-06 13:20] VITALS: BP 112/73
[2021-05-06] MEDS: REMDESIVIR 100 MG in SODIUM CHLORIDE 0.9% 100 ML IVPB SCH (14:05)
[2021-05-06 21:50] VITALS: BP 127/81
[2021-05-06] MEDS: MELATONIN 5 MG TABLET PO SCH (22:19)
[2021-05-07 02:03] VITALS: BP 102/61
[2021-05-07 02:41] VITALS: BP 115/68
[2021-05-07] MEDS: LEVOTHYROXINE 25 MCG TABLET PO SCH (05:58)
[2021-05-07 07:43] LABS: BASOPHILS % (AUTO) 0 % (0-1); EOSINOPHILS % (AUTO) 0 % (1-7); LYMPHOCYTES % (AUTO) 19 % (22-44); MEAN CORPUSCULAR HEMOGLOBIN 24.8 pg (27.0-34.8); MEAN CORPUSCULAR HGB CONC 32.7 g/dL (32.4-35.8); MEAN PLATELET VOLUME 7.3 fL (7.4-10.4); MONOCYTES % (AUTO) 10 % (2-9); NEUTROPHILS % (AUTO) 70 % (42-75); PLATELET COUNT 276 x10^3/uL (130-400); RED BLOOD COUNT 6.78 x10^6/uL (3.82-5.3); RED CELL DISTRIBUTION WIDTH 19.8 % (9.6-15.2)
[2021-05-07 07:56] LABS: ALBUMIN 2.3 g/dL (3.4-5.0); ANION GAP 7 mmol/L (5-15); CALCIUM 8.8 mg/dL (8.5-10.1); CHLORIDE 101 mmol/L (98-107)
[2021-05-07 08:11] LABS: ALANINE AMINOTRANSFERASE 20 U/L (12-78); ALKALINE PHOSPHATASE 74 U/L (45-117); BILIRUBIN,TOTAL 0.4 mg/dL (0.2-1.0); CREATININE 0.52 mg/dL (0.55-1.02); TOTAL PROTEIN 6.9 g/dL (6.4-8.2)
[2021-05-07 08:52] VITALS: BP 108/66
[2021-05-07] MEDS: THIAMINE 100MG TABLET PO SCH ×2 (08:55→21:29)
[2021-05-07] MEDS: ZINC SULFATE 220 MG CAPSULE PO SCH (08:55)
[2021-05-07] MEDS: DEXAMETHASONE 4 MG/ML, 1ML IVPush SCH (08:55)
[2021-05-07] MEDS: ASCORBIC ACID 500 MG TABLET PO SCH ×2 (08:55→21:29)
[2021-05-07] MEDS: SENNA/DOCUSATE TABLET PO SCH (08:55)
[2021-05-07] MEDS: CHOLECALCIFEROL 5,000u TAB PO SCH (08:55)
[2021-05-07 14:11] VITALS: BP 113/71
[2021-05-07] MEDS: REMDESIVIR 100 MG in SODIUM CHLORIDE 0.9% 100 ML IVPB SCH (14:21)
[2021-05-07 19:04] VITALS: BP 107/68
[2021-05-07] MEDS: MELATONIN 5 MG TABLET PO SCH (21:00)
[2021-05-08 00:34] VITALS: BP 123/72
[2021-05-08] MEDS: LEVOTHYROXINE 25 MCG TABLET PO SCH (05:32)
[2021-05-08 07:29] LABS: CHLORIDE 101 mmol/L (98-107)
[2021-05-08 07:30] LABS: BASOPHILS % (AUTO) 0 % (0-1); EOSINOPHILS % (AUTO) 0 % (1-7); LYMPHOCYTES % (AUTO) 18 % (22-44); MEAN CORPUSCULAR HEMOGLOBIN 24.9 pg (27.0-34.8); MEAN PLATELET VOLUME 7.3 fL (7.4-10.4); MONOCYTES % (AUTO) 9 % (2-9); NEUTROPHILS % (AUTO) 73 % (42-75); PLATELET COUNT 277 x10^3/uL (130-400); RED BLOOD COUNT 6.96 x10^6/uL (3.82-5.3); RED CELL DISTRIBUTION WIDTH 19.5 % (9.6-15.2)
[2021-05-08 07:42] LABS: ALANINE AMINOTRANSFERASE 25 U/L (12-78); ALBUMIN 2.4 g/dL (3.4-5.0); ALKALINE PHOSPHATASE 79 U/L (45-117); ANION GAP 7 mmol/L (5-15); BILIRUBIN,TOTAL 0.5 mg/dL (0.2-1.0); CALCIUM 8.9 mg/dL (8.5-10.1); CREATININE 0.65 mg/dL (0.55-1.02)
[2021-05-08 08:00] VITALS: BP 110/68
[2021-05-08] MEDS: SENNA/DOCUSATE TABLET PO SCH (09:00)
[2021-05-08] MEDS: CHOLECALCIFEROL 5,000u TAB PO SCH (09:58)
[2021-05-08] MEDS: ASCORBIC ACID 500 MG TABLET PO SCH (09:58)
[2021-05-08] MEDS: THIAMINE 100MG TABLET PO SCH (09:58)
[2021-05-08] MEDS: ZINC SULFATE 220 MG CAPSULE PO SCH (09:58)
[2021-05-08] MEDS: DEXAMETHASONE 4 MG/ML, 1ML IVPush SCH (09:58)
[2021-05-08] MEDS ORDERED: PRED10TA PO ×2 (10:10)
[2021-05-08] MEDS ORDERED: MELA5TAB14 PO (10:10)
[2021-05-08] MEDS ORDERED: ONDA4TAB7 PO (10:10)
[2021-05-08] MEDS: REMDESIVIR 100 MG in SODIUM CHLORIDE 0.9% 100 ML IVPB SCH (12:24)
[2021-05-16] MEDS ORDERED: DOXY100T PO (10:17)
[2021-05-16] MEDS ORDERED: PRED10TA PO (10:17)
== END 2021-05-08 15:36 | disposition home health service (06) | DRG 871 ==
LOC: ED 08:27 → EDIP 14:25 → 4WST 19:56 → 3N 05-06 13:07
PROVIDERS: ADMIT Family Medicine; ATTEND Family Medicine
PROC: XW033E5 Introduction of Remdesivir Anti-infective into Peripheral Vein, Percutaneous Approach, New Technology Group 5 (ICD-10-PCS; principal; 2021-05-04)
DX: A41.89 Other specified sepsis (principal); J96.01 Acute respiratory failure with hypoxia; U07.1 COVID-19; J12.82 Pneumonia due to coronavirus disease 2019; E87.1 Hypo-osmolality and hyponatremia; D75.1 Secondary polycythemia; E03.9 Hypothyroidism, unspecified; E04.1 Nontoxic single thyroid nodule; E86.0 Dehydration; E86.1 Hypovolemia; Z66 Do not resuscitate; R13.10 Dysphagia, unspecified; Z85.528 Personal history of other malignant neoplasm of kidney; Z85.118 Personal history of other malignant neoplasm of bronchus and lung; Z85.850 Personal history of malignant neoplasm of thyroid; Z85.841 Personal history of malignant neoplasm of brain; Z85.29 Personal history of malignant neoplasm of other respiratory and intrathoracic organs
CPT/HCPCS: 36415; 70450; 71045; 71275; 80053; 81001; 82533; 82565; 82728; 83605; 83615; 84145; 84439; 84443; 84484; 84520; 85025; 85379; 85651; 86140; 87040; 93005; 96361; 96374; G0378; J1100; J2185; J2405; J3370; Q9967; U0005; J2060; J7030; J7050; J7120; U0003

== ENCOUNTER 2021-05-11 13:51 | Inpatient (IN) | payer MEDICARE, MEDICAID ==
[~2021-05-11] VITALS: Ht 144.8 cm; Wt 54.8 kg
[2021-05-16 15:41] VITALS: BP 98/57
== END 2021-05-16 18:19 | disposition home health service (06) | DRG 193 ==
LOC: SUATTDRO 17:53 → ED 17:54 → EDIP 18:27 → 3N 05-12 01:22
PROVIDERS: ADMIT Internal Medicine; ATTEND Hospitalist
PROC: 0T9B70Z Drainage of Bladder with Drainage Device, Via Natural or Artificial Opening (ICD-10-PCS; principal; 2021-05-11)
DX: J18.9 Pneumonia, unspecified organism (principal); J96.01 Acute respiratory failure with hypoxia; C64.9 Malignant neoplasm of unspecified kidney, except renal pelvis; E87.1 Hypo-osmolality and hyponatremia; C79.31 Secondary malignant neoplasm of brain; C78.00 Secondary malignant neoplasm of unspecified lung; D84.9 Immunodeficiency, unspecified; R73.9 Hyperglycemia, unspecified; Z20.822 Contact with and (suspected) exposure to COVID-19; T38.0X5A Adverse effect of glucocorticoids and synthetic analogues, initial encounter; G62.9 Polyneuropathy, unspecified; Z66 Do not resuscitate; Z90.5 Acquired absence of kidney; Z79.899 Other long term (current) drug therapy; Y92.89 Other specified places as the place of occurrence of the external cause